=== PATIENT | female | born 1995 | race Caucasian/White ===

== ENCOUNTER 2016-10-17 01:13 | Emergency (ER) | payer OTHER ==
[~2016-10-17 01:13] MED LIST: AMOX500T PO; PHENTAB PO
[2016-10-17 01:15] VITALS: BP 128/84; PULSE 98; RESP 16; TEMP 98.9; O2SAT 99
[2016-10-17] MEDS ORDERED: TETANUS/DIPHTHERIA TOXOID ADULT 0.5 ML VIAL IM ONE (01:45)
[2016-10-17] MEDS ORDERED: ACETAMINOPHEN/HYDROcodone 325 MG/5 MG TAB PO ONE (01:45)
--- NOTE | 2016-10-17 01:48 | PD ---
HPI Chief Complaint: Laceration/Skin Injury Time Seen by Provider: 01:45 Travel History International Travel<30 days: No Contact w/Intl Traveler<30days: No Traveled to known affect area: No History of Present Illness HPI 21-year-old [id number] female presents emergency Department with a laceration to her left middle finger from a broken glass all doing dishes today. She states that she was moving a plate when it broke in her hand cutting the tip of her finger. She has not had a tetanus shot over 5 years. She states the pain is moderate. She denies any numbness or tingling. No other injury. PFSH Past Medical History Medical History: Denies Significant Hx Tetanus Vaccination: > 5 Years ?: Not LMP: 10/11/16 : 0 Past Surgical History Surgical History: No Previous Surgery Social History Alcohol Use: Yes (OCC) Tobacco Use: No Substance Use: No Allergies-Medications (Allergen,Severity, Reaction): Coded Allergies: No Known Allergies (Unverified , 10/17/16) Reported Meds & Prescriptions Reported Meds & Active Scripts Active Review of Systems Except as stated in HPI: all other systems reviewed are Neg Physical Exam Narrative GENERAL: This is a well-nourished, well-developed patient, in no apparent distress. SKIN: No rashes, ecchymoses or lesions. Warm and dry. HEAD: Atraumatic. Normocephalic. EYES: PERRL, EOMI, no discharge or injection. No scleral icterus. EARS: Clear NOSE: Nasal turbinates appear normal. THROAT: Mucosa pink and moist. Airway patent. NECK: Trachea midline. supple, moves head freely. LUNGS: Clear to auscultation. CV: Regular in rhythm. ABDOMEN: Soft nontender. EXT: No clubbing cyanosis or edema. The patient has lacerated a 1 x 1 cm area of tissue from the tip of her left middle finger distal tip. There is no active bleeding. No bone or tendon injury. She is able to extend and flex her finger freely. Good Refill. No nail bed injury. Data Data Last Documented VS Vital Signs Date Time Temp Pulse Resp B/P Pulse Ox O2 Delivery O2 Flow Rate FiO2 10/17/16 01:15 98.9 98 16 128/84 99 Room Air Orders Tetanus/Diphtheria Tox Adult (Tetanus/Di (10/17/16 01:45) Acetamin-Hydrocod 325-5 Mg (Shorter 5-325 (10/17/16 01:45) MDM Medical Decision Making Medical Screen Exam Complete: Yes Emergency Medical Condition: Yes Medical Record Reviewed: Yes Differential Diagnosis MDM: High Differential diagnoses: Fracture, sprain, strain, dislocation, contusion, neurovascular injury Narrative Course The patient has cut the tip of her left middle finger off. There is a 1 x 1 cm area of avulsed skin into the subcutaneous tissue. Positive hemostasis. No need for sutures. The wound is cleansed and dressed by the nursing staff. Patient's given tetanus immunization and Lortab 5 milligram by mouth. This is superficial tip laceration left middle finger Diagnosis Primary Impression: superficial left middle fingertip laceration Patient Instructions: General Instructions Departure Forms: Tests/Procedures, Work Release Special Instructions: No work 2 days. Additional Instructions: Rest. Elevation. Diclofenac. Daily wound care with soap, water, Neosporin. Follow up with a medical doctor in one week. Return to the ER if any problems. Med/Other Pt SpecificInfo: Wound Care Disposition: 01 DISCHARGE HOME Condition: Stable Orlando Cabezas Oct 17, 2016 01:48
[2016-10-17] MEDS ORDERED: DICL50TA3 PO (01:49)
== END 2016-10-17 02:14 | disposition home or self-care (01) ==
LOC: NEPD 01:13
DX: S61.213A Laceration without foreign body of left middle finger without damage to nail, initial encounter (principal); W25.XXXA Contact with sharp glass, initial encounter; Y93.G1 Activity, food preparation and clean up; Z23 Encounter for immunization
CPT/HCPCS: 90471; 90714